=== PATIENT | male | born 1970 | race Caucasian/White ===

== ENCOUNTER 2021-10-24 18:51 | Emergency (ER) | payer OTHER, SELFPAY ==
--- NOTE | 2021-10-24 19:02 | ED.URI ---
HPI - URI/Sore Throat General Chief Complaint: Upper Respiratory Infection Stated Complaint: cold sx Time Seen by Provider: 10/24/21 19:05 Source: patient and RN notes reviewed Mode of arrival: ambulatory Limitations: no limitations History of Present Illness HPI Narrative: 51-year-old male presents with concern for 1 week history of productive cough, rhinorrhea, nasal congestion, ear fullness and decreased hearing. He reports history of smoking, 1 pack/day for 30 years. Reports using marijuana. He reports trying ibuprofen and multisymptom cold medicine without relief. He has not been vaccinated for COVID. He denies shortness of breath, diarrhea, nausea, vomiting. Reports constipation. MD elicited complaint: cough Related Data Home Medications Medication Instructions Recorded Confirmed ibuprofen 200 mg PO Q6H PRN 10/24/21 10/24/21 naproxen sodium [Aleve] 220 mg PO BID PRN 10/24/21 10/24/21 Allergies Allergy/AdvReac Type Severity Reaction Status Date / Time No Known Allergies Allergy Verified 10/24/21 19:06 Review of Systems Review of Systems: CONSTITUTIONAL: Reports malaise. Denies chills, sweats, or fever. EYES: Denies visual changes, redness, or discharge. ENT: Reports rhinorrhea, congestion. Denies sinus pain and sore throat. CARDIOVASCULAR: Denies chest pain, palpitations, or edema. RESPIRATORY: Reports productive cough. Denies dyspnea. GASTROINTESTINAL: Denies abdominal pain, nausea, vomiting, diarrhea SKIN: Denies rash or itching. MUSCULOSKELETAL: Denies myalgia. NEUROLOGIC: Denies headache. All systems reviewed & are unremarkable except as noted in HPI and below PMFSH Comments At time of signature, agree with nursing past medical, surgical, social and family history. There is no relevant family history pertinent to the presenting complaint Exam Narrative: GENERAL: Well-appearing, well-nourished, and in no acute distress. HEAD: Normocephalic EYES: PERRLA, conjunctivae clear ENT: Nares clear. Mucous membranes moist. Left TM pearly hernandez with dull light reflex, right TM erythematous and bulging; no tragal tenderness. Oropharynx not erythematous without lesions. Tonsils not enlarged and without exudate, no drooling, no hoarseness, no trismus, uvula midline. NECK: Supple. No lymphadenopathy CHEST: Scattered inspiratory and expiratory wheeze with scattered rhonchi, breath sounds equal. No rales or stridor. No respiratory distress, speaks in full sentences. HEART: Regular rate and rhythm. No murmur heard. SKIN: Warm, dry, no rash. NEURO: Alert and oriented x3. PSYCH: Normal mood and affect Course Course Emergency Course: Patient is aware of diagnosis, understands and agrees to treatment plan. Anticipatory guidance given. Patient agrees to follow-up as directed and is aware of reasons to seek care at the emergency department. Portions of this record may have been created with voice recognition software Level of Care: Express Care Visit Vital Signs Vital signs: Reviewed. Pt has been instructed to follow up with his primary care provider within the next week regarding his elevated blood pressure today. MDM - URI/Sore Throat MDM Narrative Medical decision making narrative: Differential diagnosis considered: Avalos virus, strep pharyngitis, allergic rhinitis, upper respiratory tract infection, sinusitis, rhinosinusitis, nasopharyngitis. viral pharyngitis, otitis media, otitis externa, pneumonia, bronchitis, viral cough syndrome, viral syndrome, and influenza. Exam findings show no acute concerns or changes; patient is non-toxic appearing and is in no distress. Patient is appropriate for outpatient treatment and follow-up. Lab Data Attestation: I reviewed the patient's lab results. Critical Care Time Critical Care Time Critical Care Time: No Discharge Plan Discharge Clinical Impression: Productive cough Otitis media Qualifiers: Otitis media type: suppurative Chronicity: acute Laterality: right Recurrenc
[2021-10-24 19:03] VITALS: BP 168/109; PULSE 82; RESP 16; TEMP 37.1; O2SAT 99
--- NOTE | 2021-10-24 19:16 | PC.NURSE ---
This RN asked patient if he was currently taking medications or was prescribed medications for hypertension. Pt reports that he is not taking or prescribed medications for hypertension, but was donating plasma to control the hypertension. Pt reports that his last donation of plasma was about 3 weeks ago.
== END 2021-10-24 19:34 | disposition home or self-care (01) ==
PROVIDERS: Emergency Provider Nurse Practitioner
DX: R05.9 Cough, unspecified (principal); H66.001 Acute suppurative otitis media without spontaneous rupture of ear drum, right ear; Z20.822 Contact with and (suspected) exposure to COVID-19
CPT/HCPCS: 87426; 99203; C9803; G0463

== ENCOUNTER 2021-12-01 13:24 | Emergency (ER) | payer OTHER, SELFPAY ==
[2021-12-01 13:33] VITALS: BP 154/83; PULSE 71; RESP 16; TEMP 35.7; O2SAT 100
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
--- NOTE | 2021-12-01 15:43 | PC.NURSE ---
record request from [facility] obtained
[2021-12-01 16:25] VITALS: BP 159/95; PULSE 74; RESP 19; O2SAT 98
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
--- NOTE | 2021-12-01 16:40 | PC.NURSE ---
Patient found to be yelling at [employer] in the room at this time and stating that he will come back tomorrow because he wants his toe cut off.
== END 2021-12-01 16:44 | disposition left against medical advice (07) ==
LOC: ANHED 15:47
PROVIDERS: Emergency Provider Nurse Practitioner Family
DX: M79.671 Pain in right foot (principal); Z95.820 Peripheral vascular angioplasty status with implants and grafts
CPT/HCPCS: 99281